=== PATIENT | male | born 1990 | race African-American/Black ===

== ENCOUNTER 2016-11-10 04:43 | Emergency (ER) | payer SELFPAY ==
[~2016-11-10] VITALS: Ht 182.9 cm; Wt 98.0 kg
[2016-11-10 04:45] VITALS: BP 122/65; PULSE 89; RESP 14; TEMP 98.6; O2SAT 97
[2016-11-10 05:01] VITALS: BP 163/108; PULSE 94; RESP 20; TEMP 98.8; O2SAT 97
--- NOTE | 2016-11-10 05:19 | PD ---
HPI Chief Complaint: Oral / Dental Pain or Problem Time Seen by Provider: 05:04 Travel History International Travel<30 days: No Contact w/Intl Traveler<30days: No Traveled to known affect area: No History of Present Illness HPI This is a 26-year-old male who presents today with complaints of sore throat and sensation that his throat is closing up. The patient reports a bad wisdom tooth in his left lower mandible. He denies any fevers, chills. He feels as though his glands are swollen under his mandible. There is no reported tooth infection. He states he has pain in his wisdom teeth but worse in his left lower mandible. PFSH Past Medical History Medical History: Denies Significant Hx Diminished Hearing: No Tetanus Vaccination: Unknown Influenza Vaccination: No Social History Alcohol Use: Yes (RARE) Tobacco Use: No Substance Use: No Allergies-Medications (Allergen,Severity, Reaction): Coded Allergies: No Known Allergies (Verified , 11/10/16) Reported Meds & Prescriptions Reported Meds & Active Scripts Active Penicillin V Potassium 500 Mg Tab 500 Mg PO BID Review of Systems Except as stated in HPI: all other systems reviewed are Neg General / Constitutional: No: Fever, Chills HENT: Positive: Sore Throat, Dental Difficulties (sore wisdom tooth on the left lower mandible), Other (and station that his throat is closing up.), No: Headaches, Lightheadedness, Neck Stiffness Cardiovascular: No: Chest Pain or Discomfort, Palpitations Respiratory: No: Cough, Shortness of Breath, Wheezing, Stridor Gastrointestinal: No: Nausea, Vomiting Physical Exam Narrative GENERAL: Well-nourished, well-developed patient, in no acute respiratory distress. SKIN: Focused skin assessment warm/dry. HEAD: Normocephalic/atraumatic. EYES: No scleral icterus. No injection or drainage. ENT: Mucosa pink and moist. Posterior pharynx shows erythema. Uvula is midline. There is tonsillar erythema without exudate. No stridor appreciated. On examination the patient's submandibular lymph nodes, there is mild lymphadenopathy however no woody edema noted. CARDIOVASCULAR: Regular rate and rhythm without murmurs, gallops, or rubs. RESPIRATORY: Breath sounds equal bilaterally. No accessory muscle use. GASTROINTESTINAL: Abdomen soft, non-tender, nondistended. NEUROLOGICAL: Awake and alert. Cranial nerves II through XII intact. Motor grossly within normal limits. Five out of 5 muscle strength in all muscle groups. Normal speech. Data Data Last Documented VS Vital Signs Date Time Temp Pulse Resp B/P Pulse Ox O2 Delivery O2 Flow Rate FiO2 11/10/16 05:01 98.8 94 20 163/108 97 11/10/16 04:45 Room Air Orders Complete Blood Count With Diff (11/10/16 05:05) Basic Metabolic Panel (Bmp) (11/10/16 05:05) Group A Rapid Strep Screen (11/10/16 05:05) Dexamethasone Inj (Decadron Inj) (11/10/16 06:15) Penicillin Vk 250 Mg/5 Ml Liq (Veetids 2 (11/10/16 06:15) Labs Laboratory Tests Test 11/10/16 05:14 White Blood Count 7.9 TH/MM3 Red Blood Count 4.44 MIL/MM3 Hemoglobin 14.0 GM/DL Hematocrit 39.6 % Mean Corpuscular Volume 89.2 FL Mean Corpuscular Hemoglobin 31.5 PG Mean Corpuscular Hemoglobin 35.3 % Concent Red Cell Distribution Width 13.4 % Platelet Count 348 TH/MM3 Mean Platelet Volume 6.7 FL Neutrophils (%) (Auto) 60.5 % Lymphocytes (%) (Auto) 26.3 % Monocytes (%) (Auto) 6.8 % Eosinophils (%) (Auto) 3.8 % Basophils (%) (Auto) 2.6 % Neutrophils # (Auto) 4.8 TH/MM3 Lymphocytes # (Auto) 2.1 TH/MM3 Monocytes # (Auto) 0.5 TH/MM3 Eosinophils # (Auto) 0.3 TH/MM3 Basophils # (Auto) 0.2 TH/MM3 CBC Comment DIFF FINAL Differential Comment MDM Medical Decision Making Medical Screen Exam Complete: Yes Emergency Medical Condition: Yes Differential Diagnosis Dental abscess versus submandibular abscess versus Ed's angina versus strep pharyngitis Narrative Course 26-year-old male presents with sore throat and swelling of his glands. He states he feels as though he can't breathe well. The patient has strep pharyngitis. He's been given one dose of Penicillin VK times one dose here in emerged from in. He's also been given 8 mg of IV Decadron. He'll be given a prescription for Pen-Vee K 500 mg twice daily 10 days. He is instructed to return if he develops any worsening swelling, difficulty swallowing or breathing , or any other reason. Diagnosis Primary Impression: Streptococcal pharyngitis Additional Instructions: Motrin every 6-8 hours for pain. Med/Other Pt SpecificInfo: Prescription(s) given Scripts Penicillin V Potassium 500 Mg [id number] Mg PO BID #20 TAB Ref 0 Prov:Clifton Iniguez MD 11/10/16 Disposition: 01 DISCHARGE HOME Condition: Stable Clifton Iniguez MD November 10, 2016 05:19
[2016-11-10 05:32] LABS: AUTOMATED NEUTROPHIL # 4.8 TH/MM3 (1.8-7.7); BASOPHIL # 0.2 TH/MM3 (0-0.2); BASOPHIL % 2.6 % (0.0-2.0); EOSINOPHIL # 0.3 TH/MM3 (0-0.4); EOSINOPHIL % 3.8 % (0.0-4.0); HEMATOCRIT 39.6 % (39.0-51.0); HEMO FLAGS DIFF FINAL; LYMPH % 26.3 % (9.0-44.0); LYMPHOCYTE # 2.1 TH/MM3 (1.0-4.8); MEAN CELL VOLUME 89.2 FL (80.0-100.0); MEAN CORPUSCULAR HEMOGLOBIN 31.5 PG (27.0-34.0); MEAN CORPUSCULAR HGB CONC 35.3 % (32.0-36.0); MONO % 6.8 % (0.0-8.0); NEUT % 60.5 % (16.0-70.0); PLATELET COUNT 348 TH/MM3 (150-450); RED BLOOD COUNT 4.44 MIL/MM3 (4.50-5.90); RED CELL DISTRIBUTION WIDTH 13.4 % (11.6-17.2); WHITE BLOOD COUNT 7.9 TH/MM3 (4.0-11.0)
[2016-11-10] MEDS ORDERED: PENI500T PO (06:06)
[2016-11-10 06:11] LABS: BICARBONATE 26.5 MEQ/L (21.0-32.0); POTASSIUM 3.7 MEQ/L (3.5-5.1)
[2016-11-10] MEDS ORDERED: DEXAMETHASONE SOD PHOS 4 MG/ML VIAL IV PUSH ONE (06:15)
[2016-11-10] MEDS ORDERED: PENICILLIN V POTASSIUM 250 MG/5 ML PO ONE (06:15)
== END 2016-11-10 06:38 | disposition home or self-care (01) ==
LOC: NEPE 04:43
DX: J02.0 Streptococcal pharyngitis (principal); B95.0 Streptococcus, group A, as the cause of diseases classified elsewhere
CPT/HCPCS: 80048; 85025; 87880; 96374; 99284; J1100

== ENCOUNTER 2017-06-13 01:08 | Emergency (ER) | payer SELFPAY ==
[~2017-06-13] VITALS: Ht 182.9 cm; Wt 98.0 kg
[~2017-06-13 01:08] MED LIST: PENI500T PO
[2017-06-13 01:10] VITALS: BP 169/109; PULSE 86; RESP 16; TEMP 98.3; O2SAT 100
--- NOTE | 2017-06-13 02:31 | RADRPT ---
EXAM DATE/TIME: 06/13/2017 01:44 [facility] COMPARISON: No previous studies available for comparison. INDICATIONS : Right hand pain from striking a punching bag. MEDICAL HISTORY : None. SURGICAL HISTORY : None. ENCOUNTER: Initial ACUITY: 1 day PAIN SCORE: 10/10 LOCATION: Right hand FINDINGS: There is a non-angulated fracture of the distal metaphysis of the 2nd metacarpal. The remainder the osseous structures are intact. No radiopaque foreign bodies. CONCLUSION: Nondisplaced distal metaphyseal 2nd metacarpal fracture. Mike Best MD on June 13, 2017 at 2:28 Board Certified Radiologist. This report was verified electronically.
[2017-06-13] MEDS ORDERED: IBUP1TAB7 PO (02:39)
--- NOTE | 2017-06-13 02:42 | PD ---
HPI Chief Complaint: Injury Time Seen by Provider: 02:38 Travel History International Travel<30 days: No Contact w/Intl Traveler<30days: No Traveled to known affect area: No History of Present Illness HPI 27-year-old male presents for evaluation of right hand pain. He reports that this evening he was punching a punching bag and he developed right hand pain. Pain is throbbing, constant, localized to the right second metacarpal region. He has no other complaints at this time. [facility] Past Medical History Diminished Hearing: No Musculoskeletal: Yes (LEFT TIBIA FRACTURE) Immunizations Current: Yes Social History Alcohol Use: Yes (RARE) Tobacco Use: No Substance Use: No Allergies-Medications (Allergen,Severity, Reaction): Coded Allergies: No Known Allergies (Verified Adverse Reaction, Unknown, 06/13/17) Reported Meds & Prescriptions Reported Meds & Active Scripts Active Ibuprofen 800 Mg Tab 800 Mg PO Q6HR PRN Penicillin V Potassium 500 Mg Tab 500 Mg PO BID Review of Systems Musculoskeletal: Positive: Pain Skin: Positive Other (denies open wounds) Physical Exam Narrative GENERAL: Well-developed well-nourished male in no acute distress SKIN: Warm and dry. Some bruising is developing overlying the right hand second metacarpal region. HEAD: Atraumatic. Normocephalic. EYES: Pupils equal and round. No scleral icterus. No injection or drainage. ENT: No nasal bleeding or discharge. Mucous membranes pink and moist. NECK: Trachea midline. No JVD. CARDIOVASCULAR: Regular rate and rhythm. No murmur appreciated. RESPIRATORY: No accessory muscle use. Clear to auscultation. Breath sounds equal bilaterally. GASTROINTESTINAL: Abdomen soft, non-tender, nondistended. Hepatic and splenic margins not palpable. MUSCULOSKELETAL: Skin as noted above. Tender to palpation right hand overlying the second metacarpal. The patient maintains full range of motion of the right hand. Capillary refill is less than 2 seconds in all digits of the right hand. NEUROLOGICAL: Awake and alert. No obvious cranial nerve deficits. Motor grossly within normal limits. Normal speech. Data Data Last Documented VS Vital Signs Date Time Temp Pulse Resp B/P (MAP) Pulse Ox O2 Delivery O2 Flow Rate FiO2 06/13/17 01:10 98.3 86 16 169/109 (129) 100 Room Air Orders Orders Hand, Complete ([id number]) (06/13/17 ) Mandatory Outpatient Referral (06/13/17 02:38) Splint Or Brace Apply/Monitor (06/13/17 02:38) Ed Discharge Order (06/13/17 02:38) [facility] Medical Decision Making Medical Screen Exam Complete: Yes Emergency Medical Condition: Yes Medical Record Reviewed: Yes Differential Diagnosis Metacarpal fracture, sprain, contusion, hematoma, dislocation Narrative Course X-ray imaging confirms nondisplaced second metacarpal fracture. The patient does not currently have insurance. Therefore mandatory outpatient referral for hand surgery follow-up has been placed. Radial gutter splint will be applied. The patient is stable for discharge. Diagnosis Primary Impression: Right hand fracture Referrals: Hand Surgeon Additional Instructions: Follow-up with a hand surgeon. Our caseworker protective services will call to facilitate appointment. Do not remove the splint. Ibuprofen as needed for pain. Take with meals. Return for any emergent medical conditions. Med/Other Pt SpecificInfo: Prescription(s) given, Orthopedic Instructions Scripts Ibuprofen (Ibuprofen) 800 Mg Tab 800 MG PO Q6HR Y for PAIN, #40 TAB 0 Refills Prov: Oz Prescott MD 06/13/17 Disposition: 01 DISCHARGE HOME Condition: Stable Vasyl Cherry Jun 13, 2017 02:42
== END 2017-06-13 02:50 | disposition home or self-care (01) ==
LOC: NEPD 01:08
DX: S62.390A Other fracture of second metacarpal bone, right hand, initial encounter for closed fracture (principal); W21.89XA Striking against or struck by other sports equipment, initial encounter; Y93.B9 Activity, other involving muscle strengthening exercises
CPT/HCPCS: 29125; 73130

== ENCOUNTER 2017-12-19 02:06 | Emergency (ER) | payer SELFPAY ==
[~2017-12-19 02:06] MED LIST changes: +IBUP1TAB7 PO
[2017-12-19 02:12] VITALS: BP 174/93; PULSE 92; RESP 18; TEMP 98.8; O2SAT 98
--- NOTE | 2017-12-19 02:30 | PD ---
HPI Chief Complaint: Abdominal Pain Time Seen by Provider: 02:18 Travel History International Travel<30 days: No Contact w/Intl Traveler<30days: No Traveled to known affect area: No History of Present Illness HPI Patient has been complaining of a 3 day history of suprapubic pressure, denies any urinary frequency/dysuria or hematuria. Suprapubic pressure is not associated with any diarrhea. The pain is rated a 5 out of 10 and seems to be worse usually during voiding/urination. Patient denies any alleviating factors. Patient denies any associated factors such as fever, rash, headache, visual changes, chest pain, flank pain, abdominal pain. Drug allergy Past surgical history significant for left tib-fib surgery at the age of 10 Past medical history negative per patient PFSH Past Medical History Diminished Hearing: No Musculoskeletal: Yes (LEFT TIBIA FRACTURE) Immunizations Current: Yes Social History Alcohol Use: Yes (RARE) Tobacco Use: No Substance Use: No Allergies-Medications (Allergen,Severity, Reaction): Coded Allergies: No Known Allergies (Verified Adverse Reaction, Unknown, 12/19/17) Reported Meds & Prescriptions Reported Meds & Active Scripts Active Cipro (Ciprofloxacin HCl) 500 Mg Tab 500 Mg PO BID 3 Days Ultram (Tramadol HCl) 50 Mg Tab 50 Mg PO Q6H PRN Ibuprofen 800 Mg Tab 800 Mg PO Q6HR PRN Penicillin V Potassium 500 Mg Tab 500 Mg PO BID Review of Systems General / Constitutional: No: Fever Eyes: No: Visual changes HENT: No: Headaches Cardiovascular: No: Chest Pain or Discomfort Respiratory: No: Shortness of Breath Gastrointestinal: Positive: Abdominal Pain Genitourinary: No: Dysuria Musculoskeletal: No: Pain Skin: No Rash Neurologic: No: Weakness Psychiatric: No: Depression Endocrine: No: Polydipsia Hematologic/Lymphatic: No: Easy Bruising Physical Exam Narrative GENERAL: SKIN: Warm and dry. HEAD: Atraumatic. Normocephalic. EYES: Pupils equal and round. No scleral icterus. No injection or drainage. ENT: No nasal bleeding or discharge. Mucous membranes pink and moist. NECK: Trachea midline. No JVD. CARDIOVASCULAR: Regular rate and rhythm. RESPIRATORY: No accessory muscle use. Clear to auscultation. Breath sounds equal bilaterally. GASTROINTESTINAL: Abdomen soft, non-tender, mild tenderness to percussion over the suprapubic area MUSCULOSKELETAL: Extremities without clubbing, cyanosis, or edema. No obvious deformities. NEUROLOGICAL: Awake and alert. No obvious cranial nerve deficits. Motor grossly within normal limits. Five out of 5 muscle strength in the arms and legs. Normal speech. PSYCHIATRIC: Appropriate mood and affect; insight and judgment normal. Data Data Last Documented VS Vital Signs Date Time Temp Pulse Resp B/P (MAP) Pulse Ox O2 Delivery O2 Flow Rate FiO2 12/19/17 02:12 98.8 92 18 174/93 (120) 98 Orders Orders Urinalysis - C+S If Indicated (12/19/17 02:26) Gc And Chlamydia Pcr (12/19/17 02:26) Ct Abd/Pel W/O Iv Contrast (12/19/17 02:31) Ed Discharge Order (12/19/17 03:21) Labs Laboratory Tests Test 12/19/17 02:30 Urine Color YELLOW Urine Turbidity CLEAR Urine pH 6.0 Urine Specific [place]dal[place] 1.028 Urine Protein 30 mg/dL Urine Glucose (UA) NEG mg/dL Urine Ketones 20 mg/dL Urine Occult Blood NEG Urine Nitrite NEG Urine Bilirubin NEG Urine Urobilinogen 2.0 mg/dL Urine Leukocyte Esterase NEG Urine RBC 6 /hpf Urine WBC 1 /hpf Urine Squamous Epithelial Cells <1 /hpf Urine Mucus FEW /lpf Microscopic Urinalysis Comment CULT NOT INDICATED MDM Medical Decision Making Medical Screen Exam Complete: Yes Emergency Medical Condition: Yes Medical Record Reviewed: Yes Differential Diagnosis UTI versus colitis versus appendicitis versus bacterial STD Narrative Course UA is not significant for UTI CT abdomen and pelvis read by radiologist as negative noncontrast CT Diagnosis Primary Impression: Suprapubic discomfort Patient Instructions: General Instructions, Urinary Tract Infection in Men (ED) Scripts Ciprofloxacin (Cipro) 500 Mg Tab 500 MG PO BID for Infection for 3 Days, #6 TAB 0 Refills Prov: Lester Gonzalez MD 12/19/17 Tramadol (Ultram) 50 Mg Tab 50 MG PO Q6H Y for PAIN, #10 TAB 0 Refills Prov: Lester Gonzalez MD 12/19/17 Disposition: 01 DISCHARGE HOME Condition: Stable Lester Gonzalez MD Dec 19, 2017 02:30
[2017-12-19 02:51] LABS: BILIRUBIN, URINE NEG (NEG); BLOOD, URINE NEG (NEG); GLUCOSE,URINE NEG (NEG); KETONE, URINE 20 mg/dL (NEG); MUCUS URINE FEW /lpf (OCC); NITRITE,URINE NEG (NEG); SQUAMOUS EPITHELIAL CELL URINE <1 /hpf (0-5); URINE COLOR YELLOW (YELLW/STRAW); URINE LEUKOCYTE ESTERASE NEG (NEG)
--- NOTE | 2017-12-19 03:17 | RADRPT ---
EXAM DATE: 12/19/2017 2:57 AM EDT AGE/SEX: 27 years / Male INDICATIONS: Low abdomen pain. CLINICAL DATA: This is the patient's initial encounter. Patient reports that signs and symptoms have been present for 1 day and indicates a pain score of 5/10. MEDICAL/SURGICAL HISTORY: None. None. RADIATION DOSE: 15.01 CTDI (mGy) COMPARISON: No prior exams available for comparison. TECHNIQUE: Multiple contiguous axial images were obtained through the abdomen. Images were obtained using multiple row detector helical technique. Using automated exposure control and adjustment of the mA and/or kV according to patient size, radiation dose was kept as low as reasonably achievable to o btain optimal diagnostic quality images. DICOM format image data is available electronically for rev iew and comparison. FINDINGS: Lower Lungs: The visualized lower lungs are clear. Liver: The liver has a homogeneous density without space-occupying lesion. There is no dilation of th e biliary tree. Spleen: Homogeneous density without enlargement. Pancreas: Unremarkable without mass or calcification. Kidneys: Normal in size and shape. No evidence of mass or hydronephrosis. Adrenal Glands: Unremarkable. Aorta: The aorta and proximal iliac vessels are grossly unremarkable without aneurysmal dilation. Bowel/Mesentery: The bowel loops are grossly unremarkable. The cecum and sigmoid colon have a normal configuration. Abdominal Wall: Intact. Retroperitoneum: No evidence of adenopathy in the retrocrural, para-aortic, or deep pelvic regions. Bladder: Contours are smooth. Reproductive Organs: No abnormal masses or calcifications seen. Inguinal: The inguinal region is unremarkable without evidence of adenopathy. Bony Structures: Unremarkable. CONCLUSION: 1. Negative CT Abdomen and Pelvis non contrast. Electronically signed by: Abram Pagan MD 12/19/2017 3:16 AM EDT
[2017-12-19] MEDS ORDERED: TRAM50 PO (03:21)
[2017-12-19] MEDS ORDERED: CIPR-9 PO (03:21)
== END 2017-12-19 03:40 | disposition home or self-care (01) ==
LOC: NEPC 02:06
DX: R10.9 Unspecified abdominal pain (principal); Z79.899 Other long term (current) drug therapy
CPT/HCPCS: 74176; 81001; 87491; 87591